=== PATIENT | female | born 1950 | race Asian ===

== ENCOUNTER 2021-07-10 21:26 | Emergency (ER) | payer MEDICARE ==
[~2021-07-10] VITALS: Ht 149.9 cm; Wt 53.1 kg
--- NOTE | 2021-07-10 22:08 | NUR ---
PT CAME BIBA FROM HOME FOR HTN. A/O X 3 DENIES ANY HEADACHE, PAIN OR DISCOMFORT AT THIS TIME.
--- NOTE | 2021-07-10 22:15 | NUR ---
EKG COMPLETED AT BEDSIDE
--- NOTE | 2021-07-10 22:25 | NUR ---
BLOOD DRAW COMPLETED AND SENT.
[2021-07-10 22:34] LABS: BASOPHILS % (AUTO) 0.8 % (0.0-2.0); EOSINOPHILS % (AUTO) 2.7 % (0.0-6.0); HEMATOCRIT 39 % (33-45); LYMPHOCYTES # (AUTO) 1.4 K/uL (0.8-4.8); LYMPHOCYTES % (AUTO) 38.2 % (20.0-44.0); MEAN CORPUSCULAR HGB CONC 33 g/dl (31.0-36.0); MEAN CORPUSCULAR VOLUME 92 fL (82-100); MONOCYTES # (AUTO) 0.4 K/uL (0.1-1.30); MONOCYTES % (AUTO) 10.1 % (2.0-12.0); NEUTROPHILS # (AUTO) 1.7 K/uL (1.8-8.9); NEUTROPHILS % (AUTO) 48.2 % (43.0-81.0); PLATELET COUNT (AUTO) 208 K/uL (150-450); RED BLOOD CELL COUNT(AUTO) 4.22 MIL/uL (4.0-5.2); WHITE BLOOD COUNT (AUTO) 3.6 K/uL (4.3-11.0)
[2021-07-10 22:46] LABS: CALCIUM, SERUM 9.1 mg/dL (8.5-10.1); CARBON DIOXIDE 30 mmol/L (21-32); CHLORIDE 104 mmol/L (98-107); CREATININE 0.9 mg/dL (0.6-1.3); GLUCOSE 109 mg/dL (74-106); POTASSIUM 3.4 mmol/L (3.5-5.1); SODIUM SERUM 142 mmol/L (136-145); UREA NITROGEN, BLOOD 18 mg/dL (7-18)
[2021-07-10 23:41] VITALS: BP 167/69
== END 2021-07-10 23:42 | disposition home or self-care (01) ==
LOC: ER 21:35
DX: I10 Essential (primary) hypertension (principal); K21.9 Gastro-esophageal reflux disease without esophagitis; E78.00 Pure hypercholesterolemia, unspecified
CPT/HCPCS: 36415; 71045-TC; 80048-TC; 84484-TC; 85025-TC